=== PATIENT | female | born 1950 | race Caucasian/White ===

== ENCOUNTER 2022-02-18 22:00 | Emergency (ER) | payer BC, MEDICAID ==
[~2022-02-18] VITALS: Ht 160 cm; Wt 72.0 kg
[2022-02-19] MEDS ORDERED: ONDANSETRON HCL 4 MG/2 ML VIAL IV ONE ×3 (02:30→05:30)
[2022-02-19] MEDS ORDERED: MORPHINE SULFATE 4 MG/ML SYR/VIAL IV ONE ×2 (02:30→03:45)
[2022-02-19] MEDS ORDERED: LACTATED RINGER'S 1,000 ML IV ONE (03:45)
[2022-02-19] MEDS ORDERED: HYDROmorphone HCL 2 MG/ML VL/or syr IV ONE (05:30)
[2022-02-19 05:47] LABS: Basophils # (auto) 0 10 ^3/uL (0-0.2); Eosinophils # (auto) 0.1 10 ^3/uL (0-0.8); Hemoglobin 9.7 g/dL (12.2-16.2); Lymphocytes # (auto) 1.1 10 ^3/uL (0.4-5.4); Monocytes # (auto) 0.5 10 ^3/uL (0-1.3); White Blood Cell 5.7 10^3/uL (4.4-10.8)
[2022-02-19 05:49] LABS: Basophils % (auto) 0.7 % (0.0-2.0); Eosinophils % (auto) 1.1 % (0.0-7.0); Lymphocytes % (auto) 19.2 % (10.0-50.0); Mean Corpuscular Hemoglobin 25.6 pg (28.0-32.0); Mean Corpuscular Hgb Conc. 32.5 g/dL (32.0-36.0); Mean Corpuscular Volume 78.9 fL (80.0-100.0); Red Cell Distribution Width 18.1 % (11.8-14.3)
[2022-02-19 06:04] LABS: Albumin 2.3 g/dL (3.4-5.0); Potassium 4.2 mmol/L (3.5-5.1)
[2022-02-19 06:07] LABS: BUN/Creatinine Ratio 27.4; Bilirubin, Total 0.2 mg/dL (0.2-1.0)
[2022-02-19 06:45] LABS: INR 1.01 (0.9-1.15)
[2022-02-19] MEDS ORDERED: TRAM50TA2 PO (08:19)
[2022-02-19] MEDS ORDERED: DOXY100C2 PO (08:19)
[2022-02-19] MEDS ORDERED: DOCU-94 PO (08:37)
[2022-02-19 09:30] VITALS: BP 130/64
== END 2022-02-19 10:21 | disposition admitted as inpatient to this hospital (09) ==
LOC: EDBD 22:00 → ER 22:00
DX: S42.201A Unspecified fracture of upper end of right humerus, initial encounter for closed fracture (principal); I10 Essential (primary) hypertension; E11.9 Type 2 diabetes mellitus without complications; E03.9 Hypothyroidism, unspecified; K21.9 Gastro-esophageal reflux disease without esophagitis; Z90.710 Acquired absence of both cervix and uterus; Z20.822 Contact with and (suspected) exposure to COVID-19; W01.0XXA Fall on same level from slipping, tripping and stumbling without subsequent striking against object, initial encounter; Y93.89 Activity, other specified; Y92.89 Other specified places as the place of occurrence of the external cause; Y99.8 Other external cause status
CPT/HCPCS: 29125; 36415; 71045; 73030; 80053; 85025; 85610; 85730; 87426; 93005; 96361; 96374; 96375; 99285; J1170; J2270; J2405; J7120

== ENCOUNTER 2022-08-24 20:28 | Inpatient (IN) | payer BC, MEDICAID ==
[~2022-08-24] VITALS: Ht 160 cm; Wt 77.3 kg
[~2022-08-24 20:28] MED LIST: DOCU-94 PO; DOXY100C4 PO; TRAM50TA2 PO
[2022-08-24] MEDS ORDERED: METOCLOPRAMIDE HCL 5MG/ml INJ 2ml VIAL IV ONE (21:30)
[2022-08-24 22:30] LABS: Basophils # (auto) 0 10 ^3/uL (0-0.2); Eosinophils # (auto) 0 10 ^3/uL (0-0.8); Eosinophils % (auto) 0.4 % (0.0-7.0); Mean Corpuscular Hgb Conc. 32.7 g/dL (32.0-36.0); Monocytes # (auto) 0.3 10 ^3/uL (0-1.3); Monocytes % (auto) 3.4 % (0.0-12.0)
[2022-08-24] MEDS ORDERED: MORPHINE SULFATE INJ 2 MG/ml SYRG IV ONE (22:30)
[2022-08-24 22:32] LABS: Basophils % (auto) 0.3 % (0.0-2.0); Hematocrit 37.1 % (36.0-46.0); Hemoglobin 12.1 g/dL (12.2-16.2); Lymphocytes # (auto) 0.6 10 ^3/uL (0.4-5.4); Lymphocytes % (auto) 6.9 % (10.0-50.0); Mean Corpuscular Hemoglobin 26.9 pg (28.0-32.0); Mean Corpuscular Volume 82.2 fL (80.0-100.0); Neutrophils # (auto) 8.2 10 ^3/uL (1.6-8.6); Nucleated Red Blood Cells % 0.1 %; Red Blood Cells 4.51 10^6/uL (4.0-5.20); Red Cell Distribution Width 16.3 % (11.8-14.3); White Blood Cell 9.2 10^3/uL (4.4-10.8)
[2022-08-24 22:45] LABS: INR 1.01 (0.9-1.15); Partial Thromboplastin Time 24.3 sec (24.6-33.4)
[2022-08-24 22:47] LABS: Albumin 2.9 g/dL (3.4-5.0); Calcium 9.1 mg/dL (8.5-10.1)
[2022-08-24 22:51] LABS: BUN/Creatinine Ratio 17.6 (10.0-20.0); Bilirubin, Total 0.4 mg/dL (0.2-1.0); Total Protein 7.6 g/dL (6.4-8.2)
[2022-08-25] MEDS ORDERED: SOD CHL 0.45% 1,000 ML IV ONE (00:15)
[2022-08-25] MEDS ORDERED: NITROGLYCERIN 0.4 MG SL TAB SL PRN (00:15)
[2022-08-25] MEDS: MORPHINE SULFATE INJ 2 MG/ml SYRG IV PRN ×5 (01:48→20:44)
[2022-08-25] MEDS: ONDANSETRON HCL 4 MG/2 ML VIAL IV PRN ×3 (06:16→20:30)
[2022-08-25 07:55] LABS: Basophils # (auto) 0 10 ^3/uL (0-0.2); Eosinophils # (auto) 0 10 ^3/uL (0-0.8); Eosinophils % (auto) 0.1 % (0.0-7.0); Lymphocytes # (auto) 0.7 10 ^3/uL (0.4-5.4); Monocytes # (auto) 0.4 10 ^3/uL (0-1.3); White Blood Cell 6.6 10^3/uL (4.4-10.8)
[2022-08-25 07:56] LABS: Basophils % (auto) 0.3 % (0.0-2.0); Hematocrit 38.1 % (36.0-46.0); Hemoglobin 12.6 g/dL (12.2-16.2); Lymphocytes % (auto) 10.4 % (10.0-50.0); Mean Corpuscular Hemoglobin 27.2 pg (28.0-32.0); Mean Corpuscular Volume 82.6 fL (80.0-100.0); Monocytes % (auto) 6.7 % (0.0-12.0); Neutrophils # (auto) 5.5 10 ^3/uL (1.6-8.6); Neutrophils % (auto) 82.5 % (37.0-80.0); Nucleated Red Blood Cells % 0.1 %; Red Blood Cells 4.61 10^6/uL (4.0-5.20); Red Cell Distribution Width 16.3 % (11.8-14.3)
[2022-08-25 08:03] LABS: Albumin 2.8 g/dL (3.4-5.0); BUN/Creatinine Ratio 17.6 (10.0-20.0); Calcium 8.9 mg/dL (8.5-10.1)
[2022-08-25 08:06] LABS: Bilirubin, Total 0.4 mg/dL (0.2-1.0); Total Protein 7.4 g/dL (6.4-8.2)
[2022-08-25] MEDS ORDERED: GASTROGRAFIN 120 ML SOL ONE (13:31)
[2022-08-25] MEDS ORDERED: LEVO137T3 PO (23:25)
[2022-08-25] MEDS ORDERED: METH-1181 PO (23:25)
[2022-08-25] MEDS ORDERED: CITA10TA5 PO (23:25)
[2022-08-25] MEDS ORDERED: TRAZ-184 PO (23:25)
[2022-08-25] MEDS ORDERED: ALEN70TA74 PO (23:26)
[2022-08-25] MEDS ORDERED: TRAM50TA2 PO (23:26)
[2022-08-25] MEDS ORDERED: AMLO1TAB22 PO (23:26)
[2022-08-25] MEDS ORDERED: ALPR0.255 PO (23:26)
[2022-08-25] MEDS ORDERED: FURO40TA4 PO (23:26)
[2022-08-25] MEDS: hydrALAZINE HCL 20 MG/ML VL IV PRN (23:47)
[2022-08-26] VITALS (9 sets, daily range): BP systolic 120–172; BP diastolic 48–84
[2022-08-26] MEDS: MORPHINE SULFATE INJ 2 MG/ml SYRG IV PRN ×4 (00:57→20:44)
[2022-08-26] MEDS: hydrALAZINE HCL 20 MG/ML VL IV PRN (05:01)
[2022-08-26] MEDS ORDERED: hydrALAZINE HCL 20 MG/ML VL IV PRN (08:00)
[2022-08-26] MEDS ORDERED: hydrALAZINE HCL 20 MG/ML VL IV ONE (08:00)
[2022-08-26 11:41] LABS: Urine Bacteria NONE SEEN /hpf (None Seen); Urine Blood Negative /uL (Negative); Urine Mucus FEW (None Seen); Urine Specific Gravity 1.022 (1.001-1.035); Urine WBC 1 /hpf (0 - 5)
[2022-08-26] MEDS ORDERED: METHOCARBAMOL 500 MG TAB PO PRN (13:30)
[2022-08-26] MEDS ORDERED: DOCUSATE SOD 100 MG CAP PO PRN (13:30)
[2022-08-26] MEDS: ONDANSETRON HCL 4 MG/2 ML VIAL IV PRN ×2 (13:56→20:43)
[2022-08-26] MEDS ORDERED: ALENDRONATE SODIUM 10 MG TAB PO SCH (14:00)
[2022-08-26] MEDS ORDERED: traZODone HCL 50 MG TAB PO PRN (14:00)
[2022-08-26] MEDS: ALPRAZolam 0.25 MG TAB PO PRN (15:41)
[2022-08-27] MEDS: ALPRAZolam 0.25 MG TAB PO PRN (03:43)
[2022-08-27 05:00] VITALS: BP 112/42
[2022-08-27] MEDS ORDERED: LEVOTHYROXINE SODIUM 25 MCG TAB PO SCH (07:00)
[2022-08-27] MEDS ORDERED: LEVOTHYROXINE SODIUM 112 MCG TAB PO SCH (07:00)
[2022-08-27 09:24] VITALS: BP 114/40
[2022-08-27] MEDS ORDERED: amLODIPine BESYLATE 5 MG TAB PO SCH (10:00)
[2022-08-27] MEDS: ONDANSETRON HCL 4 MG/2 ML VIAL IV PRN (12:45)
[2022-08-27 13:48] VITALS: BP 140/46
[2022-08-27 14:15] VITALS: BP 140/46
== END 2022-08-27 15:00 | disposition home health service (06) | DRG 390 ==
LOC: EDBD 20:28 → ER 20:32 → OVERFLOW 08-25 00:06 → OBSVTOIN 08-25 00:06 → WEST WING 08-25 22:25
PROVIDERS: ADMIT Internal Medicine; ATTEND Internal Medicine
PROC: 0D9670Z Drainage of Stomach with Drainage Device, Via Natural or Artificial Opening (ICD-10-PCS; principal; 2022-08-25)
DX: K56.609 Unspecified intestinal obstruction, unspecified as to partial versus complete obstruction (principal); E78.5 Hyperlipidemia, unspecified; E11.9 Type 2 diabetes mellitus without complications; I10 Essential (primary) hypertension; F41.9 Anxiety disorder, unspecified; K21.9 Gastro-esophageal reflux disease without esophagitis; Z90.710 Acquired absence of both cervix and uterus; Z93.3 Colostomy status
CPT/HCPCS: 36415; 71045; 74018; 74176; 74250; 80053; 81001; 83605; 83690; 84484; 85025; 85610; 85730; 86850; 86870; 86900; 86901; 87040; 93005; 96374; 96375; 96376; G0378; J2405

== ENCOUNTER 2025-03-02 08:04 | Emergency (ER) | payer BC, MEDICAID ==
[~2025-03-02] VITALS: Ht 160 cm; Wt 102.0 kg
[~2025-03-02 08:04] MED LIST changes: +ALEN70TA74 PO; +ALPR0.255 PO; +AMLO1TAB22 PO; -DOCU-94 PO; -DOXY100C4 PO; +LEVO137T3 PO; +METH-1181 PO; +TRAZ-184 PO
--- NOTE | 2025-03-02 08:28 | ED.PDOC ---
History of Present Illness HPI Comments This is a 75 year old female CORINE presenting to the ED with chief complaint of generalized weakness and wound. EMS reports patient has been noted by family to be more weak than usual with associated lightheadedness over the past few days. EMS relays patient also has a noted wound to her buttocks that has noted drainage according to the patient. Patient states that normally she is able to walk on her own, but recently has been unable to. Patient notes that she currently has a colostomy in place and only eats soft foods due to history of SBO. EMS reports patient was noted to be bradycardic at home with a heart rate ranging from the 30-40s along with having an O2 saturation of 91% on RA. Patient denies any SOB, chest pain, fever, chills, dizziness, or N/V/D. Chief Complaint: General Weakness Time Seen by MD: 08:26 Primary Care Provider: NONE Reviewed Notes: Nurses Notes, Councilor Notes, Medications, Allergies Allergies: Coded Allergies: NO KNOWN ALLERGIES (Unverified , 08/16/13) Home Meds Reported Medications Alprazolam (Alprazolam) 0.25 Mg Tab, 1 TAB PO BIDPRN PRN for anxiety attack 08/25/22 Alendronate Sodium (Alendronate Sodium) 70 Mg Tab, 1 TAB PO QWEEKLY 08/25/22 Amlodipine Besylate (Amlodipine Besylate) 5 Mg Tab, 1 TAB PO DAILY 08/25/22 Tramadol Hcl (Tramadol Hcl) 50 Mg Tab, 2 TAB PO TID PRN for severe pain 08/25/22 Methocarbamol (Methocarbamol) 500 Mg Tab, 1 TAB PO BIDPRN PRN for muscle spasm 08/25/22 Trazodone HCl (Trazodone Hydrocloride) 100 Mg Tab, 2 TAB PO QHSP PRN for FOR INSOMNIA 08/25/22 Levothyroxine Sodium (Levothyroxine Sodium) 137 Mcg Tab, 1 TAB PO DAILY 08/25/22 Information Source: Patient, Emergency Med Personnel Mode of Arrival: EMS Severity: Moderate Timing: Days Duration: Since onset Prehospital treatment: None Past Medical History PAST MEDICAL HISTORY: Anxiety, Cancer (Uterine), DM, GERD, HTN, Thyroid Past Medical History (Other): Previous SBO Surgical History: Hysterectomy Surgical History (Other): Colostomy LINE OUT MAN History: No Pertinent LINE OUT MAN History Family History Family History: No family hx of DM, No family hx of HTN Social History Smoker: Non-Smoker Alcohol: Rarely Drugs: Denies Drug Use Lives In: Home Constitutional: reports: weakness; denies: chills, diaphoresis, fatigue, fever, malaise, sweats, others EENTM: denies: blurred vision, double vision, ear bleeding, ear discharge, ear drainage, ear pain, ear ringing, eye pain, eye redness, hearing loss, mouth pain, mouth swelling, nasal discharge, nose bleeding, nose congestion, nose pain, photophobia, tearing, throat pain, throat swelling, voice changes, others Respiratory: denies: cough, hemoptysis, orthopnea, SOB at rest, shortness of breath, SOB with excertion, stridor, wheezing, others Cardiovascular: reports: lightheadedness; denies: chest pain, dizzy spells, diaphoresis, Dyspnea on exertion, edema, irregular heart beat, left arm pain, palpitations, PND, syncope, others Gastrointestinal: denies: abdomen distended, abdominal pain, blood streaked bowels, constipated, diarrhea, dysphagia, difficulty swallowing, hematemesis, melena, nausea, poor appetite, poor fluid intake, rectal bleeding, rectal pain, vomiting, others Genitourinary: denies: abnormal vagina bleeding, burning, dyspareunia, dysuria, flank pain, frequency, hematuria, incontinence, pain, , vagina discharge, urgency, others Neurological: denies: dizziness, fainting, headache, left sided numbness, left sided weakness, numbness, paresthesia, pre-existing deficit, right sided numbness, right sided weakness, seizure, speech problems, tingling, tremors, weakness, others Musculoskeletal: denies: back pain, gout, joint pain, joint swelling, muscle pain, muscle stiffness, neck pain, others Integumetry: reports: wounds (decubitus ulcer); denies: bruises, change in color, change in hair/nails, dryness, laceration, lesions, lumps, rash, others Allergic/Immunocompromised: denies: Difficulty Healing, Frequent Infections, Hives, Itching, others Hematologic/Lymphatic: denies: anemia, blood clots, easy bleeding, easy bruising, swollen glands, others Endocrine: denies: excessive hunger, excessive sweating, excessive thirst, excessive urination, flushing, intolerance to cold, intolerance to heat, unexplained weight gain, unexplained weight loss, others Psychiatric: denies: anxiety, bipolar disorder, depression, hopeless, panic disorder, schizophrenia, sleepless, suicidal, others All Other Systems: Reviewed and Negative Physical Exam General Appearance: Moderate Distress, Normal HEENT: Normal ENT Inspection, Pharynx Normal, TMs Normal Neck: Full Range of Motion, Non-Tender, Normal, Normal Inspection Respiratory: Chest Non-Tender, Lungs Clear, No Accessory Muscle Use, No Respiratory Distress, Normal Breath Sounds Cardiovascular: No Edema, No JVD, No Murmur, No Gallop, Normal Peripheral Pulses, Regular Rate/Rhythm Breast Exam: Deferred Gastrointestinal: No Organomegaly, Non Tender, No Pulsatile Mass, Normal Bowel Sounds, Soft Genitalia: Deferred Pelvic: Deferred Rectal: Deferred Extremities: No calf tenderness, Normal capillary refill, Normal inspection, Normal range of motion, Non-tender, No pedal edema Musculoskeletal : Apperance: Normal Neurologic: Alert, christian science healer II-XII nml as Tested, No Motor Deficits, Normal Affect, Normal Mood, No Sensory Deficits Cerebellar Function: NOT DONE Reflexes: NOT DONE Skin: Dry, Normal Color, Warm Peripheral Pulses: 3+ Radial (R), 3+ Radial (L) Lymphatic: No Adenopathy Was a procedure done? Was a procedure done?: No Differential Dx Considerations may include: Anemia Electrolyte imbalance X-Ray, Labs, Meds, VS Vital Signs Date Time Temp Pulse Resp B/P (MAP) Pulse Ox O2 Delivery O2 Flow Rate FiO2 03/02/25 10:30 97.9 79 24 144/45 (78) 97 97.9 03/02/25 08:30 98.7 81 20 193/49 (97) 97 98.7 03/02/25 08:30 81 20 97 Room Air* 0 21 03/02/25 08:08 60 03/02/25 08:04 97.0 43 20 175/89 95 97.0 Lab Test 03/02/25 09:55 Range/Units White Blood Count 6.2 4.4-10.8 10^3/uL Red Blood Count 5.17 4.0-5.20 10^6/uL Hemoglobin 13.0 12.2-16.2 g/dL Hematocrit 40.6 36.0-46.0 % Mean Corpuscular Volume 78.5 L 80.0-100.0 fL Mean Corpuscular Hemoglobin 25.0 L 28.0-32.0 pg Mean Corpuscular Hemoglobin Concent 31.9 L 32.0-36.0 g/dL Red Cell Distribution Width 18.8 H 11.8-14.3 % Platelet Count 179 140-450 10^3/uL Mean Platelet Volume 8.1 6.9-10.8 fL Neutrophils (%) (Auto) 74.1 37.0-80.0 % Lymphocytes (%) (Auto) 14.2 10.0-50.0 % Monocytes (%) (Auto) 8.7 0.0-12.0 % Eosinophils (%) (Auto) 2.7 0.0-7.0 % Basophils (%) (Auto) 0.3 0.0-2.0 % Neutrophils # (Auto) 4.6 1.6-8.6 10 ^3/uL Lymphocytes # (Auto) 0.9 0.4-5.4 10 ^3/uL Monocytes # (Auto) 0.5 0-1.3 10 ^3/uL Eosinophils # (Auto) 0.2 0-0.8 10 ^3/uL Basophils # (Auto) 0 0-0.2 10 ^3/uL Nucleated Red Blood Cells 0.0 % Sodium Level 139 136-145 mmol/L Potassium Level 3.9 3.5-5.1 mmol/L Chloride Level 106 98-107 mmol/L Carbon Dioxide Level 27 20-31 mmol/L Anion Gap 6 5-15 Blood Urea Nitrogen 23 9-23 mg/dL Creatinine 0.78 0.550-1.02 mg/dL Glomerular Filtration Rate Calc 78 >90 mL/min BUN/Creatinine Ratio 29.5 H 10.0-20.0 Serum Glucose 135 H 74-106 mg/dL Lactic Acid Level 1.2 0.4-2.0 mmol/L Calcium Level 9.5 8.7-10.4 mg/dL Total Bilirubin 0.3 0.2-1.0 mg/dL Aspartate Amino Transferase (AST) 21 13-40 U/L Alanine Aminotransferase (ALT) 23 7-40 U/L Alkaline Phosphatase 141 H 46-116 U/L Total Protein 7.7 5.7-8.2 g/dL Albumin 4.1 3.2-4.8 g/dL Current Medications Medications (Trade) Dose Ordered Sig/Darrick Route Start Time Stop Time Status Last Admin Sodium Chloride 1,000 ml @ 1,000 mls/hr Q1H ONCE IV 03/02/25 08:45 03/02/25 09:44 DC 03/02/25 08:45 Sodium Chloride 1,000 ml @ 150 mls/hr Q6H40M ONCE IV 03/02/25 08:45 03/02/25 15:24 03/02/25 10:30 Ceftriaxone Sodium 50 ml @ 100 mls/hr ONCE ONCE IV 03/02/25 08:45 03/02/25 09:14 DC 03/02/25 10:26 Metronidazole 100 ml @ 100 mls/hr ONCE ONCE IV 03/02/25 08:45 03/02/25 09:44 DC 03/02/25 12:18 Patient alert. Came in because of fluctuation of the heart rate. Vitals stable. She is comfortable. Good skin color. Mentating well. Answering all questions. No acute process. Blood pressure elevated. Was given clonidine. Abdomen is soft nontender. Colostomy bag in place. No nausea vomiting. Spoke with [facility]. Continue monitoring. Time of 1ST Reevaluation: 09: Reevaluation 1ST: Improved Patient Education/Counseling: Diagnosis, Treatment Family Education/Counseling: No Family Present SEPSIS Sepsis Screen Date sepsis recognized/suspect: Mar 02, 2025 Time Sepsis recognized/suspect: 0800 Recent Procedure: No On Antibiotic Therapy: Yes Respiratory Rate >20: No Heart Rate >90: No Temp<36 C (96.8 F) or >38.3 C: No SBP <90 or MAP <65 mmHG: No New Acute Mental Status Change: No Is the patient on CPAP, BIPAP,: No Physician Orders Chest Portable (03/02/25 08:27) Urinalysis (03/02/25 08:27) Blood Culture (03/02/25 08:27) Sodium Chloride 0.9% (03/02/25 08:45) Ok To Use Existing Picc (03/02/25 11:20) Vital Signs Date Time Temp Pulse Resp B/P (MAP) Pulse Ox O2 Delivery O2 Flow Rate FiO2 03/02/25 10:30 97.9 79 24 144/45 (78) 97 97.9 03/02/25 08:30 98.7 81 20 193/49 (97) 97 98.7 03/02/25 08:30 81 20 97 Room Air* 0 21 03/02/25 08:08 60 03/02/25 08:04 97.0 43 20 175/89 95 97.0 Laboratory Tests Test 03/02/25 09:55 Lactic Acid Level 1.2 mmol/L (0.4-2.0) White Blood Count 6.2 10^3/uL (4.4-10.8) Medications Medications Dose Ordered Sig/Darrick Route Start Time Stop Time Status Last Admin Dose Admin Ceftriaxone Sodium 50 ml @ 100 mls/hr ONCE ONCE IV 03/02/25 08:45 03/02/25 09:14 DC 03/02/25 10:26 Metronidazole 100 ml @ 100 mls/hr ONCE ONCE IV 03/02/25 08:45 03/02/25 09:44 DC 03/02/25 12:18 Sodium Chloride 1,000 ml @ 150 mls/hr Q6H40M ONCE IV 03/02/25 08:45 03/02/25 15:24 03/02/25 10:30 Sodium Chloride 1,000 ml @ 1,000 mls/hr Q1H ONCE IV 03/02/25 08:45 03/02/25 09:44 DC 03/02/25 08:45 Departure 1 Departure Time of Disposition: 09:27 Impression: Primary Impression: Hypertensive urgency Disposition: 01 HOME / SELF CARE / HOMELESS Condition: Good Discharged With: Self Critical Care Note Critical Care Time?: No Stability Stability form required: No Heart Score Heart Score: Heart Score Response (Comments) Value History N/A 0 EKG N/A 0 Age N/A 0 Risk Factors N/A 0 Troponin N/A 0 Total 0 I personally scribed for RAJIV HUSTON MD ([email or web address]) on 03/02/25 at 08:28. Electronically submitted by Juvenal Chiang ([email or web address]). RAJIV HUSTON MD Mar 02, 2025 08:28
[2025-03-02 08:30] VITALS: PULSE 81; RESP 20; O2SAT 97
[2025-03-02] MEDS: SODIUM CHLORIDE 0.9% 1,000 ML IV ONE ×2 (08:45→10:30)
--- NOTE | 2025-03-02 08:49 | ECG ---
[facility] Test Date: 2025-03-02 Test Time: 08:08:05 Pat Name: LEONIE VELEZ Department: [facility] ED Patient ID: [facility]-[id number] Room: Gender: F Elementary Science Teacher: bartolo : 1950 Requested By: RAJIV HUSTON Order Number: [id number] Reading MD: Byron Perez Measurements Intervals Girard Rate: 60 P: 60 [place]: 165 QRS: -12 QRSD: 86 T: 95 QT: 383 QTc: 383 Interpretive Statements Sinus rhythm Ventricular bigeminy Borderline repolarization abnormality Electronically Signed On 03-02-2025 15:29:28 PST by Byron Perez Please click the below link to view image of tracing.
--- NOTE | 2025-03-02 09:08 | DVH ---
CLINICAL INFORMATION: Generalized weakness. TECHNIQUE: Single AP portable chest radiograph was obtained. COMPARISON: XY CHEST XRAY 1 VIEW on DOS: 08/25/22, XY CHEST PORTABLE on DOS: 08/24/22, XR CHEST 1 VIEW on DOS: 08/10/22 FINDINGS: Lungs: Atelectasis in the lung bases. No focal consolidation. No pneumothorax or pleural effusion. Cardiac: Unchanged cardiomegaly. Pulmonary vasculature: Prominence of the pulmonary vasculature. Mediastinum/luca: Distal tip of the right PICC reaches the SVC/RA junction. Bones: No acute osseous abnormality identified. Other: No other significant findings. IMPRESSION: 1. Cardiomegaly and prominence of the pulmonary vasculature suggesting a degree of pulmonary vascular congestion in the appropriate clinical setting. 2. Atelectasis in the lung bases with no focal consolidation. 3. Satisfactory positioning of the right PICC.
[2025-03-02 10:42] LABS: Hematocrit 40.6 % (36.0-46.0); Hemoglobin 13.0 g/dL (12.2-16.2); Mean Corpuscular Hemoglobin 25.0 pg (28.0-32.0); Mean Corpuscular Volume 78.5 fL (80.0-100.0); Nucleated Red Blood Cells % 0.0 %
[2025-03-02 10:51] LABS: Alanine Aminotransferase 23 U/L (7-40); Albumin 4.1 g/dL (3.2-4.8); Anion Gap 6 (5-15); BUN/Creatinine Ratio 29.5 (10.0-20.0); Bilirubin, Total 0.3 mg/dL (0.2-1.0); Blood Urea Nitrogen 23 mg/dL (9-23); Calcium 9.5 mg/dL (8.7-10.4); Carbon Dioxide 27 mmol/L (20-31); Chloride 106 mmol/L (98-107); Potassium 3.9 mmol/L (3.5-5.1); Sodium 139 mmol/L (136-145); Total Protein 7.7 g/dL (5.7-8.2)
[2025-03-02 10:53] LABS: Alkaline Phosphatase 141 U/L (46-116); Glucose 135 mg/dL (74-106)
--- NOTE | 2025-03-02 12:42 | DVHDS2 ---
New Physician D'charge PN Admitting Diagnosis Admitting Diagnosis weakness Discharge Diagnosis generalized weakness Operations or Procedures none Reason(s) For Hospitalization Surgery Hospital Course 75 F who comes to ER c/o weakness over last few days. When she arrived vitals were normal, she was afebrile. She has a colostomy bag from before after that is draining appropriately. Her CBC revleaed a normal white count and hgb. Her chemistry panel showed nml electrolytes and preserved renal function. Lactic acid was nml at 1.2. CXR showed mild pulmonary congestion however she is on room air with sats >92%. Hemodynamically she is stable. She was hydrated with IV fluids NS in the ER and will be discharged home with outpt PCP follow up. Discussed with ER provider and all parties in agreement with plan. Latoya to arrange for all outpt follow up and patient to DC home. Treatment Plan Discharge Condition of Discharge Good Disposition Home Discharge Instructions Diet: Cardiac 2g Na,low cholest Activity: No Restrictions, As Tolerated Medications: see med sheet Follow Up Care Follow Up/Referral: pcp Discharge Statement: "Patient was advised to return to the ER or call 911 if any headaches, dizziness, shortness of breath, chest pain, abdominal pain, bleeding, fevers, or worsening of medical condition. Patient was counseled about treatment plan, medications, possible side effects, patientverbalized understanding. All questions were answered to the best of my ability. This discharge took greater then 30 minutes in planning, reviewing documentation, counseling the patient, and discussing with other team members." KAREEN JOSE MD Mar 02, 2025 12:42
[2025-03-02 14:00] VITALS: BP 145/52; PULSE 70; RESP 18; TEMP 98; O2SAT 97
== END 2025-03-02 14:15 | disposition home or self-care (01) ==
LOC: EDBD 08:04 → ER 08:04
DX: I16.0 Hypertensive urgency (principal); F10.90 Alcohol use, unspecified, uncomplicated; F41.9 Anxiety disorder, unspecified; E11.9 Type 2 diabetes mellitus without complications; Z79.899 Other long term (current) drug therapy; Z90.710 Acquired absence of both cervix and uterus; Z79.890 Hormone replacement therapy
CPT/HCPCS: 36415; 71045; 80053; 83605; 85025; 87040; 93005; 96361; 96365; 96366; 96367; 99285; J0696; J3490; J7030